=== PATIENT | female | born 1995 | race Caucasian/White ===

== ENCOUNTER 2020-01-16 23:36 | Emergency (ER) | payer SELFPAY ==
[~2020-01-16] VITALS: Ht 160 cm; Wt 59.0 kg
[2020-01-16 23:40] VITALS: BP 123/88
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
[2020-01-16 23:55] VITALS: BP 123/88
== END 2020-01-17 00:04 ==
LOC: EMR 23:46
DX: H10.213 Acute toxic conjunctivitis, bilateral (principal); S70.12XA Contusion of left thigh, initial encounter; W50.0XXA Accidental hit or strike by another person, initial encounter; Y92.9 Unspecified place or not applicable
CPT/HCPCS: 99281